=== PATIENT | male | born 1995 ===

== ENCOUNTER 2018-05-31 21:15 | Inpatient (IN) ==
[2018-06-01] MEDS ORDERED: Acetaminophen 325 MG Tablet PO PRN (04:11)
[2018-06-01] MEDS ORDERED: Aluminum/Magnesium/Simethacone Susp 30 ML UDC PO PRN (04:12)
--- NOTE | 2018-06-01 10:37 | P.TTN ---
- Patient Problems Problems: 1. Discharge planning 2. Medication compliance 3. Knowledge deficit 4. Lack of coping skills - Progress Toward Goals Provider Present: Dr. Ryan Bahena Provider Input: 06/01/18: Pt is new, Psych eval pending to be completed. Nurse Input: 06/01/18: Pt is new, has been isolating in his room per BHUMIKA Amador. Psychiatric Counselors Present: Other Psychiatric Therapist Input: 06/01/18: 06/01/18: Pt is new, BPSA to be completed. D/c plan pending to BPSA findings and further eval from psychiatrist. Group Spec/RT/OT/STEVEN Present: Jae Ojeda OT, TENISHA Garza Occupational Therapist Input: 06/01/18: Pt is new, group attendance to be evaluated at a later time. - Documentation Teaching Recipient: Patient
[2018-06-01] MEDS ORDERED: Haloperidol Inj 5 MG/ML Ampul IV.PUSH PRN (10:47)
[2018-06-01] MEDS ORDERED: LORazepam 1 MG Tablet PO PRN (10:47)
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
--- NOTE | 2018-06-01 13:31 | P.PNPSY ---
Subjective Remarks: The patient is a 23-year-old man, domiciled with friends in [facility] , single, employed, with psychiatric history substance abuse, depression, ADHD, no medical history, who presents in transfer from outside hospital under [place] Act due to a suicidal attempt by overdosing with heroin. Consulted to me for second opinion per on my examination today the patient is irritable, oppositional, and stating that he does not need to be here. He says that he was brought here as a suggestion of a friend because he was depressed and having suicidal thoughts, but he was not planning to commit suicide. He says that he has been using drugs, that he may be overdose, but it was not with suicidal intentions, the patient is oriented x3, at this moment denies suicidal enemas ideation, he denies visual and auditory hallucinations, he says that he is not interested in psychiatric treatment "because that medication does not work". Mental Status Examination Appearance: Appropriate Consciousness: Alert Orientation: x4 Motor Activity: Normal gait Speech: Unremarkable Language: Adequate Fund of Knowledge: Adequate Attention and Concentration: Adequate Memory: Unremarkable Mood: Irritable Affect: Appropriate, Irritable Thought Process & Associations: Intact Thought Content: Appropriate Hallucination Type: None Delusion Type: None Suicidal Ideation: No Suicidal Plan: No Suicidal Intention: No Homicidal Ideation: No Homicidal Plan: No Homicidal Intention: No Insight: Poor Judgment: Poor Assessment and Plan - Assessment (1) Acute adjustment disorder Code(s): F43.20 - Adjustment disorder, unspecified Status: Acute - Plan Plan: The patient was seen today for second opinion. I have seen and examined this patient, reviewed documentation, I agree and concur with Dr. Bahena assessment and plan. Justification for Continued Inpatient Stay: Continue admission
[2018-06-01] MEDS: Folic Acid 1 MG Tablet PO SCH (14:01)
[2018-06-01] MEDS: Multivitamin/Minerals Therapeutic Tablet PO SCH (14:01)
[2018-06-02] MEDS: Multivitamin/Minerals Therapeutic Tablet PO SCH (09:00)
[2018-06-02] MEDS: Folic Acid 1 MG Tablet PO SCH (09:00)
--- NOTE | 2018-06-02 16:40 | P.PNPSY ---
Subjective Remarks: Reviewed electronic medical records and discussed case with staff. Follow-up was conducted in the hallway with BHUMIKA Amador present. Patient states that he is "bum that he is here". His nurse reports that he has been seclusive. His affect is extremely flat and he is not overly cooperative with exam. He states "I am fine I just want to go home". Mental Status Examination Appearance: Appropriate Consciousness: Alert Orientation: x4 Motor Activity: Normal gait Speech: Unremarkable Language: Adequate Fund of Knowledge: Adequate Attention and Concentration: Adequate Memory: Unremarkable Mood: Irritable Affect: Appropriate, Irritable Thought Process & Associations: Intact Thought Content: Appropriate Hallucination Type: None Delusion Type: None Suicidal Ideation: No Suicidal Plan: No Suicidal Intention: No Homicidal Ideation: No Homicidal Plan: No Homicidal Intention: No Insight: Poor Judgment: Poor Assessment and Plan - Assessment (1) Acute adjustment disorder Code(s): F43.20 - Adjustment disorder, unspecified Status: Acute - Plan Plan: Patient will be reevaluated by the attending psychiatrist. Continue with current treatment plan. Justification for Continued Inpatient Stay: Moving this patient to a less restrictive environment would likely result in decompensation.
[2018-06-03] MEDS: Folic Acid 1 MG Tablet PO SCH (08:35)
[2018-06-03] MEDS: Multivitamin/Minerals Therapeutic Tablet PO SCH (08:37)
--- NOTE | 2018-06-03 11:44 | P.PNPSY ---
Subjective Remarks: Reviewed electronic medical records and discussed case with staff. Follow-up was conducted in the visiting area with BHUMIKA Amador present. Jonathan is very impatient. He is oppositional and wants to control the conversation. Denies any suicidal or homicidal ideations. When asked about discharge he states that he will be returning to [place]. I suspect that he is homeless with few supportive friends or family. He is eating and sleeping well. Review of Systems All other systems reviewed negative except as stated in HPI Mental Status Examination Appearance: Appropriate Consciousness: Alert Orientation: x4 Motor Activity: Normal gait Speech: Unremarkable Language: Adequate Fund of Knowledge: Adequate Attention and Concentration: Adequate Memory: Unremarkable Mood: Irritable Affect: Appropriate, Irritable Thought Process & Associations: Intact Thought Content: Appropriate Hallucination Type: None Delusion Type: None Suicidal Ideation: No Suicidal Plan: No Suicidal Intention: No Homicidal Ideation: No Homicidal Plan: No Homicidal Intention: No Insight: Poor Judgment: Poor Assessment and Plan - Assessment (1) Acute adjustment disorder Code(s): F43.20 - Adjustment disorder, unspecified Status: Acute - Plan Plan: Patient will be reevaluated by the attending psychiatrist. Continue with current treatment plan. Justification for Continued Inpatient Stay: Moving patient to a less restrictive environment may result in his decompensation.
[2018-06-04 05:52] VITALS: BP 119/72; PULSE 59; RESP 17; TEMP 98.2; O2SAT 98
[2018-06-04 07:27] LABS: Baso % (Auto) 0.5 % (0.0-2.0); Eos # (Auto) 0.1 th/mm3 (0.0-0.4); Eos % (Auto) 1.2 % (0.0-4.0); Hematocrit 50.3 % (39.0-51.0); Hemoglobin 17.8 gm/dL (13.0-17.0); Lymph % (Auto) 33.5 % (9.0-44.0); Mean Corpuscular HGB Conc 35.5 % (32.0-36.0); Mean Corpuscular Hemoglobin 34.2 pg (27.0-34.0); Mean Corpuscular Volume 96.5 fL (80.0-100.0); Mean Platelet Volume 8.1 fL (7.0-11.0); Mono # (Auto) 0.9 th/mm3 (0.0-0.9); Mono % (Auto) 10.2 % (0.0-8.0); Neut # (Auto) 4.8 th/mm3 (1.8-7.7); Neut % (Auto) 54.6 % (16.0-70.0); Platelet Count 283 th/mm3 (150-450); Red Blood Count 5.21 mil/mm3 (4.50-5.90); Red Cell Distribution Width 12.5 % (11.6-17.2); White Blood Count 8.8 th/mm3 (4.0-11.0)
[2018-06-04] MEDS: Folic Acid 1 MG Tablet PO SCH (08:49)
[2018-06-04] MEDS: Multivitamin/Minerals Therapeutic Tablet PO SCH ×2 (08:49→08:56)
--- NOTE | 2018-06-04 10:35 | P.DSPSY ---
Psychiatry Discharge Summary Inpatient Psychiatric care?: Yes Advance Directives: Unknown Reason for Unknown:: Due to Patient Condition Mental Health Advance Directive: No Health Care Proxy: No - Admission Admission Date: June 01, 2018 00:05 - Admission Diagnosis (1) Adjustment disorder with depressed mood Code(s): F43.21 - Adjustment disorder with depressed mood (2) Polysubstance abuse Code(s): F19.10 - Other psychoactive substance abuse, uncomplicated Brief History: Mr. Jaime is a 23-year-old male with no reported previous psychiatric diagnoses, who presents in transfer from [facility] under a [place] Act. Documentation from outside hospital reviewed. The patient presented there with suicidal ideations. He told the ED provider that he had recently moved from [place] and had been experiencing increase in his depression. Reviewing our electronic medical record, I see no previous visits within our system. The patient seen and examined with nursing counselor. Chart reviewed. Case discussed with nursing staff. On my examination today, the patient presents as guarded and dysphoric. He appears fairly anhedonic. He tells me "get me home and out of here." He says that he was feeling depressed yesterday because he was homesick for [place] and was feeling hungover from recent substance use. He says that in this context, he was experiencing suicidal ideation with plan to overdose on heroin. He notes that he is not typically an opiate user and so he thought that this would be a lethal suicide plan. He denies any suicidal ideation presently, somewhat unconvincingly so, and says that the reason that he is not presently suicidal is because he got some sleep. He does report that he has been sleeping poorly of late. He says that he has been feeling depressed for two months secondary to homesickness and also because he hates his job and the people he works with. He denies any homicidal ideation. No hypomanic or manic symptoms. Denies any auditory or visual hallucinations. No delusional material elicited. Remainder of the psychiatric ROS is negative, although the history is somewhat limited as the patient is fairly guarded as I said. No physical complaints. Tobacco Use In Past 30 Days: No How Often Do You Have a Drink Containing Alcohol: 2 to 3 times a week Hospital Course: Patient was admitted to a locked, inpatient psychiatric unit. Appropriate precautions were in place throughout patient's hospital stay. Patient was seen and examined on the unit by psychiatry and also visited by counselor. Patient declined any psychotropic medications. There was no evidence of any suicidality or homicidality on the inpatient unit. There was no evidence of self-care deficit. On the day of discharge: Patient seen and examined with nurse. Chart reviewed. TSH elevated but free T4 within normal limits. Case discussed with nursing staff. No behavioral issues noted overnight. Case discussed with counselor. On my examination today, the patient is requesting discharge from the inpatient psychiatric unit today. He says that he is looking forward to sleeping in his own bed and cooking himself a decent meal. He denies any suicidal or homicidal ideation, intent or plan. I can elicit no depressive or hypomanic/manic symptoms, and his affect does seem brighter today. He is future oriented. He does complain of poor sleep, but he attributes this to his roommate who is reportedly talking to himself. He has no audiovisual hallucinations, and I can elicit no delusional material. There is no evidence of impairment in reality construction. Although he has no interest in initiating a psychotropic medication at this time, he is agreeable to following up with mental health care provider on an outpatient basis. He has no physical complaints. With the patient's permission, I did endeavor on 2 separate occasions to obtain collateral information from his friend Terri Deal. I left a generic message with phone number for call back. Weighing the acute, chronic, and protective factors and based on the available evidence, I dry sand molder that the patient does not meet criteria for ongoing involuntary psychiatric hospitalization. There is no evidence of imminent risk of harm to self or others at this point, nor is there evidence of self-care deficit to substantiate ongoing involuntary psychiatric hospitalization. The patient is requesting discharge from the inpatient psychiatric unit today, and I have no basis to retain him over his objection. Patient will be discharged home today with psychiatric follow-up as arranged by counselor. Patient is also to follow-up with primary care. Patient to abstain from substances of abuse. I have counseled the patient regarding warning signs for need to return to the psychiatric emergency room as part of a general safety plan. - Discharge Discharge Date: 06/04/18 - Discharge Diagnosis (1) Adjustment disorder with depressed mood Diagnosis: Principal (Resolved) Code(s): F43.21 - Adjustment disorder with depressed mood Status: Acute (2) Polysubstance abuse Diagnosis: Secondary Code(s): F19.10 - Other psychoactive substance abuse, uncomplicated Status: Acute Discharge Disposition: Home - Discharge Instructions Discharge Diet: Regular Diet Activities You Can Perform: Weight Bearing As Tolerat - Discharge Time <= 30 minutes Mental Status Examination Appearance: Appropriate Consciousness: Alert Orientation: x4 Motor Activity: Normal gait, Other (No motor abnormalities noted. No signs of withdrawal noted.) Speech: Unremarkable Language: Adequate Fund of Knowledge: Adequate Attention and Concentration: Adequate Memory: Unremarkable Mood: Appropriate Affect: Appropriate Thought Process & Associations: Intact, Logical, Goal directed, Linear Thought Content: Appropriate Hallucination Type: None Delusion Type: None Suicidal Ideation: No Suicidal Plan: No Suicidal Intention: No Homicidal Ideation: No Homicidal Plan: No Homicidal Intention: No Mental Status Exam Remarks: Insight and judgment are perhaps fair. Discharge/Advance Care Plan - Results Vital Signs: Last Vital Signs Temp 98.2 F 06/04/18 05:51 Pulse 59 L 06/04/18 05:51 Resp 17 06/04/18 05:51 BP 119/72 06/04/18 05:51 Pulse Ox 98 06/04/18 05:51 Lab Results: Abnormal Lab Results 06/04/18 06/04/18 06/04/18 07:00 07:00 07:00 WBC 8.8 RBC 5.21 Hgb 17.8 H Hct 50.3 MCV 96.5 MCH 34.2 H MCHC 35.5 RDW 12.5 Plt Count 283 MPV 8.1 Neut % (Auto) 54.6 Lymph % (Auto) 33.5 Lewis % (Auto) 10.2 H Eos % (Auto) 1.2 Baso % (Auto) 0.5 Neut # (Auto) 4.8 Lymph # (Auto) 3.0 Lewis # (Auto) 0.9 Eos # (Auto) 0.1 Baso # (Auto) 0.0 WBC Differential . Differential Comment Auto diff final TSH 3.920 H Free T4 0.96 Laboratory Results TSH 3.920 uIU/mL (0.358-3.740) H 06/04/18 07:00 Free T4 0.96 ng/dL (0.76-1.46) 06/04/18 07:00 Summary of Procedures: None done Pending Results: None - Medications Number of antipsychotic medications at discharge: 0 - Discharge Care Plan Goals to Promote Your Health: * To prevent worsening of your condition and complications * To maintain your health at the optimal level Directions to Meet Your Goals: Take your medications as prescribed Follow your dietary instruction Follow activity as directed Keep your appointments as scheduled Take your immunizations and boosters as scheduled If your symptoms worsen call your PCP, if no PCP go to Urgent Care Center or Emergency Room For 23/01 questions related to your inpatient stay or results of tests pending at discharge, please contact Dr. Kushal Bahena MD at [phone] Smoking is Dangerous to Your Health. Avoid second hand smoking
== END 2018-06-04 14:30 | disposition home or self-care (01) ==
LOC: H270 06-01 00:05
PROVIDERS: ADMIT Psychiatry & Neurology Psychiatry; ATTEND Psychiatry & Neurology Psychiatry